=== PATIENT | male | born 1945 | race Caucasian/White ===

== ENCOUNTER → 2021-09-06 | Outpatient (CLI) | payer OTHER | LOC: HYPER 10:44 | PROVIDERS: ATTEND Emergency Medicine | DX: T21.33XA Burn of third degree of upper back, initial encounter (principal); T31.0 Burns involving less than 10% of body surface; E11.628 Type 2 diabetes mellitus with other skin complications; L98.492 Non-pressure chronic ulcer of skin of other sites with fat layer exposed; G89.29 Other chronic pain; M54.50 Low back pain, unspecified; Z79.84 Long term (current) use of oral hypoglycemic drugs; Z79.82 Long term (current) use of aspirin; Z79.899 Other long term (current) drug therapy; Z98.41 Cataract extraction status, right eye; Z98.42 Cataract extraction status, left eye; X16.XXXA Contact with hot heating appliances, radiators and pipes, initial encounter; Y93.89 Activity, other specified; Y92.89 Other specified places as the place of occurrence of the external cause; Y99.8 Other external cause status ==

== ENCOUNTER → 2021-09-13 | Outpatient (CLI) | payer OTHER | LOC: HYPER 07:59 | PROVIDERS: ATTEND Emergency Medicine | DX: T21.33XD Burn of third degree of upper back, subsequent encounter (principal); T31.0 Burns involving less than 10% of body surface; E11.622 Type 2 diabetes mellitus with other skin ulcer; L98.492 Non-pressure chronic ulcer of skin of other sites with fat layer exposed; G89.29 Other chronic pain; M54.9 Dorsalgia, unspecified; Z79.84 Long term (current) use of oral hypoglycemic drugs; Z79.82 Long term (current) use of aspirin; Z79.899 Other long term (current) drug therapy; X16.XXXD Contact with hot heating appliances, radiators and pipes, subsequent encounter ==

== ENCOUNTER → 2021-09-18 | Outpatient (CLI) | payer OTHER | LOC: HYPER 13:33 | PROVIDERS: ATTEND Emergency Medicine | DX: T21.33XD Burn of third degree of upper back, subsequent encounter (principal); T31.0 Burns involving less than 10% of body surface; E11.622 Type 2 diabetes mellitus with other skin ulcer; L98.492 Non-pressure chronic ulcer of skin of other sites with fat layer exposed; G89.29 Other chronic pain; M54.50 Low back pain, unspecified; Z79.84 Long term (current) use of oral hypoglycemic drugs; Z79.899 Other long term (current) drug therapy; X16.XXXD Contact with hot heating appliances, radiators and pipes, subsequent encounter ==

== ENCOUNTER → 2021-09-21 | Outpatient (CLI) | payer OTHER | LOC: HYPER 14:46 | PROVIDERS: ATTEND Emergency Medicine | DX: T21.33XD Burn of third degree of upper back, subsequent encounter (principal); E11.622 Type 2 diabetes mellitus with other skin ulcer; L98.492 Non-pressure chronic ulcer of skin of other sites with fat layer exposed; G89.29 Other chronic pain; M54.50 Low back pain, unspecified; Z79.84 Long term (current) use of oral hypoglycemic drugs; Z79.82 Long term (current) use of aspirin; Z79.899 Other long term (current) drug therapy; X16.XXXD Contact with hot heating appliances, radiators and pipes, subsequent encounter ==